=== PATIENT | female | born 1985 | race Two or more races ===

== ENCOUNTER 2023-06-16 10:27 | Emergency (ER) | payer OTHER ==
[~2023-06-16] VITALS: Ht 157.5 cm; Wt 68.0 kg
[2023-06-16] MEDS ORDERED: SYNTHROID75 MCG PO (11:15)
[2023-06-16 12:05] LABS: HEMATOCRIT 39.1 % (36.0-45.00); HEMOGLOBIN 12.6 g/dL (12.0-15.00); MEAN CELL VOLUME 83.9 fL (80.00-100.00); MEAN CORPUSCULAR HGB CONC 32.2 g/dl (32.0-36.0); PLATELET COUNT 283 K/uL (150-450); RED BLOOD COUNT 4.66 M/uL (4.00-6.00); RED CELL DISTRIBUTION WIDTH 14.8 % (11.5-14.5)
[2023-06-16 12:31] LABS: CALCIUM 7.9 mg/dL (8.5-10.1); CREATININE SERUM 0.82 mg/dL (0.55-1.02); GFR 78.44; POTASSIUM 3.21 mEq/L (3.5-5.1)
== END 2023-06-16 15:49 | disposition home or self-care (01) ==
LOC: ER 10:28
PROVIDERS: Emergency Medicine
DX: K52.89 Other specified noninfective gastroenteritis and colitis (principal); E03.9 Hypothyroidism, unspecified

== ENCOUNTER 2023-08-26 21:23 | Emergency (ER) | payer OTHER ==
[~2023-08-26] VITALS: Ht 157.5 cm; Wt 66.2 kg
[~2023-08-26 21:23] MED LIST: SYNTHROID75 MCG PO
[2023-08-26 21:59] LABS: HEMATOCRIT 37.6 % (36.0-45.00); HEMOGLOBIN 12.6 g/dL (12.0-15.00); MEAN CELL VOLUME 83.8 fL (80.00-100.00); MEAN CORPUSCULAR HEMOGLOBIN 28.1 pg (27.00-32.0); MEAN CORPUSCULAR HGB CONC 33.6 g/dl (32.0-36.0); PLATELET COUNT 273 K/uL (150-450); RED BLOOD COUNT 4.49 M/uL (4.00-6.00); RED CELL DISTRIBUTION WIDTH 13.8 % (11.5-14.5)
[2023-08-26 22:16] LABS: CALCIUM 8.1 mg/dL (8.5-10.1); CREATININE SERUM 0.89 mg/dL (0.55-1.02); GFR 71.37; POTASSIUM 3.23 mEq/L (3.5-5.1)
[2023-08-27] MEDS ORDERED: ONDANSETRON ODT4 MG PO (01:18)
[2023-08-27] MEDS ORDERED: PEPCID40 MG PO (01:18)
[2023-08-27] MEDS ORDERED: INTESTINEX680 M1 PO ×2 (01:19)
== END 2023-08-27 01:33 ==
LOC: ER 21:24
PROVIDERS: Emergency Medicine
DX: R11.10 Vomiting, unspecified (principal); K52.89 Other specified noninfective gastroenteritis and colitis

== ENCOUNTER 2025-02-03 11:55 | Emergency (ER) | payer OTHER ==
[~2025-02-03] VITALS: Ht 157.5 cm; Wt 63.5 kg
[~2025-02-03 11:55] MED LIST changes: +INTESTINEX680 M1 PO; +ONDANSETRON ODT4 MG PO; +PEPCID40 MG PO
[2025-02-03] MEDS ORDERED: FAMOtidine 10 MG/ML (4ML VIAL) IV ONE (13:15)
[2025-02-03] MEDS ORDERED: ONDANSETRON HCL 2 MG/ML VIAL IV ONE (13:15)
[2025-02-03] MEDS ORDERED: 0.9 % SODIUM CHLORIDE 1,000 ML IV ONE (13:30)
[2025-02-03] MEDS ORDERED: FAMOTIDINE/PF 20 MG/2 ML VIAL ONE (13:32)
[2025-02-03] MEDS ORDERED: ONDANSETRON HCL 2 MG/ML VIAL ONE (13:32)
[2025-02-03 15:22] LABS: BASO % 0.5 % (0.1-1.2); EOS # 0.02 (0.04-0.54); EOS % 0.2 % (0.7-7.0); HEMATOCRIT 36.8 % (34.1-44.9); HEMOGLOBIN 12.1 g/dL (11.2-15.7); LYMPH # 1.78 (1.18-3.74); LYMPH % 16.1 % (19.3-53.1); MEAN CORPUSCULAR HEMOGLOBIN 27.4 pg (25.6-32.2); MONO # 0.95 (0.24-0.82); MONO % 8.6 % (4.7-12.5); NEUT # 8.21 (1.56-6.13); NEUT % 74.1 % (34.0-71.1); PLATELET COUNT 370 K/uL (163-369); RED BLOOD COUNT 4.42 M/uL (3.93-5.22); RED CELL DISTRIBUTION WIDTH 14.2 % (11.6-14.4)
[2025-02-03] MEDS ORDERED: PROBIOTIC1 EAC2 PO (15:54)
[2025-02-03] MEDS ORDERED: PEPCID AC20 MG PO (15:54)
== END 2025-02-03 16:34 | disposition home or self-care (01) ==
LOC: ER 13:11
PROVIDERS: General Practice
DX: K52.9 Noninfective gastroenteritis and colitis, unspecified (principal); R11.10 Vomiting, unspecified; E03.8 Other specified hypothyroidism